=== PATIENT | male | born 1955 | race Caucasian/White ===

== ENCOUNTER 2018-09-09 14:08 | Outpatient (CLI) | payer OTHER, SELFPAY ==
[2018-09-09 15:22] LABS: Anion Gap 8.4 mmol/L (3-11); BUN 31 mg/dL (7-18); CO2 29.6 mmol/L (21.0-32.0); CREATININE 1.21 mg/dL (0.70-1.30); Chloride 101 mmol/L (98-107); Cholesterol 211 mg/dL (50-200); Glucose 115 mg/dL (70-100); HDL Cholesterol 72 mg/dL (40-60); LDL CHOLESTEROL 111 mg/dL (<100); Potassium 3.8 mmol/L (3.5-5.1); Sodium 139 mmol/L (136-145); Triglyceride 160 mg/dL (30-150)
[2018-09-10 16:33] LABS: PSA, Screening 0.3 ng/ml (0-4.5)
== END 2018-09-09 14:28 ==
PROVIDERS: PCP Emergency Medicine; Visit Provider Emergency Medicine
DX: Z00.00 Encounter for general adult medical examination without abnormal findings
CPT/HCPCS: 36415; 80048; 80061; 83721; 84153

== ENCOUNTER 2019-09-27 02:13 | Outpatient (CLI) | payer MEDICARE, BC, SELFPAY ==
[2019-09-27 11:57] LABS: Anion Gap 10.3 mmol/L (3-11); BUN 23 mg/dL (7-18); CO2 27.7 mmol/L (21.0-32.0); CREATININE 1.21 mg/dL (0.70-1.30); Calcium 8.9 mg/dL (8.5-10.1); Chloride 108 mmol/L (98-107); Glucose 98 mg/dL (74-106); Magnesium 1.9 mg/dL (1.8-2.4); Potassium 4.6 mmol/L (3.5-5.1); Sodium 146 mmol/L (136-145)
== END 2019-09-27 02:33 ==
PROVIDERS: PCP Emergency Medicine; Visit Provider Emergency Medicine
DX: I10 Essential (primary) hypertension (principal); I49.9 Cardiac arrhythmia, unspecified
CPT/HCPCS: 36415; 80048; 83735; 93225

== ENCOUNTER 2019-09-27 02:24 | Outpatient (CLI) | payer MEDICARE, BC, SELFPAY | END 2019-09-27 02:44 | PROVIDERS: PCP Emergency Medicine; Visit Provider Emergency Medicine | DX: I49.9 Cardiac arrhythmia, unspecified (principal) | CPT/HCPCS: 93225 ==

== ENCOUNTER 2019-09-30 10:36 | Outpatient (CLI) | payer MEDICARE, BC, SELFPAY ==
--- NOTE | 2019-09-30 11:41 | W.HOLTRPT ---
Date of service: 09/30/19 Time of Service: 11:41 Holter Monitor Report Holter Monitor Note: There is a 24-hour Holter monitor ordered for the indication of irregular heartbeat. ?The patient was in normal sinus rhythm for the majority of the recording with a mean heart rate of 83 bpm. ?There was one episode of supraventricular tachycardia which lasted 5 beats. There were rare PACs. ?There were 0 episodes of ventricular tachycardia but frequent (8.8%) PVCs. ?There were no episodes of atrial fibrillation, no pauses greater than 3 seconds and no evidence of high degree heart block.
== END 2019-09-30 10:56 ==
PROVIDERS: PCP Emergency Medicine; Visit Provider Emergency Medicine
DX: I49.8 Other specified cardiac arrhythmias (principal); I47.1 Supraventricular tachycardia; I49.3 Ventricular premature depolarization
CPT/HCPCS: 93227; 93226

== ENCOUNTER 2019-11-09 02:06 | Outpatient (CLI) | payer MEDICARE, BC, SELFPAY ==
[2019-11-09 13:35] LABS: Abs Immature Grans 0.02 10^3/uL (0.0-0.06); Absolute Basophil Count 0.04 10^3/uL (0.0-0.2); Absolute Eosinophil Count 0.08 10^3/uL (0.0-0.7); Absolute Lymphocyte Count 1.33 10^3/uL (1.2-3.4); Absolute Monocyte Count 0.57 10^3/uL (0.1-0.8); Absolute Neutrophil Count 4.42 10^3/uL (1.2-6.7); Basophils % 0.6; Eosinophils % 1.2; HCT 42.8 % (40.0-50.0); HGB 14.9 g/dL (13.5-17.5); Immature Grans % 0.3; Lymphocytes % 20.6; MCH 31.6 pg (27.0-33.0); MCHC 34.8 % (32.0-36.0); MCV 90.9 fL (80-95); MPV 10.7 fL (8.0-11.0); Monocytes % 8.8; Neutrophils % 68.5 %; Platelet Count 205 10^3/uL (130-400); RBC 4.71 10^6/uL (4.36-5.78); RDW 12.3 % (11.8-14.1); RDW-SD 41.2 fL; WBC 6.46 10^3/uL (4.4-10.8)
[2019-11-09 14:36] LABS: ALT 30 U/L (16-63); AST 36 U/L (15-37); Alkaline Phosphatase 76 U/L (46-116); Anion Gap 8.9 mmol/L (3-11); BUN 21 mg/dL (7-18); Bilirubin, Total 0.6 mg/dL (0.2-1.0); C-Reactive Protein 0.09 mg/dL (0.0-0.3); CO2 30.1 mmol/L (21.0-32.0); CREATININE 1.25 mg/dL (0.70-1.30); Calcium 9.1 mg/dL (8.5-10.1); Chloride 101 mmol/L (98-107); Estimated GFR 57.97 (mL/min/1.73m2); Glucose 107 mg/dL (74-106); Potassium 3.8 mmol/L (3.5-5.1); Sodium 140 mmol/L (136-145); Total Protein 6.7 g/dL (6.4-8.2)
[2019-11-10 11:08] LABS: Lyme Ab w Rflx to Lyme Confirm Negative (Negative)
== END 2019-11-09 02:26 ==
PROVIDERS: PCP Emergency Medicine; Visit Provider Emergency Medicine
DX: I42.9 Cardiomyopathy, unspecified (principal); M25.50 Pain in unspecified joint; I49.3 Ventricular premature depolarization; I10 Essential (primary) hypertension
CPT/HCPCS: 36415; 80053; 99203; 85025; 86140; 86618

== ENCOUNTER 2020-01-19 07:16 | Outpatient (CLI) | payer MEDICARE, BC, SELFPAY ==
[2020-01-21 00:07] LABS: COVID-19 RT-PCR Result NEGATIVE (Negative)
== END 2020-01-19 07:36 ==
PROVIDERS: PCP Emergency Medicine; Visit Provider Nurse Practitioner Family
DX: Z11.59 Encounter for screening for other viral diseases (principal)
CPT/HCPCS: U0003

== ENCOUNTER 2020-08-18 18:40 | Outpatient (REF) | payer MEDICARE, OTHER, SELFPAY ==
[2020-08-18 14:19] LABS: Anion Gap 8.4 mmol/L (3-11); BUN 19 mg/dL (7-18); CO2 28.6 mmol/L (21.0-32.0); CREATININE 1.2 mg/dL (0.70-1.30); Calcium 8.5 mg/dL (8.5-10.1); Chloride 106 mmol/L (98-107); Glucose 69 mg/dL (74-106); Potassium 4.3 mmol/L (3.5-5.1); Sodium 143 mmol/L (136-145)
== END 2020-08-18 18:41 | disposition home or self-care (01) ==
LOC: NCHCN 18:40
PROVIDERS: PCP Emergency Medicine; Visit Provider Emergency Medicine
DX: I10 Essential (primary) hypertension (principal)
CPT/HCPCS: 80048

== ENCOUNTER → 2021-08-23 11:27 | Outpatient (BNVA) | payer MEDICARE, OTHER, SELFPAY | PROVIDERS: PCP Family Medicine; Referring Provider Emergency Medicine; Visit Provider Surgery | DX: Z12.11 Encounter for screening for malignant neoplasm of colon (principal); N25.9 Disorder resulting from impaired renal tubular function, unspecified; Z90.5 Acquired absence of kidney; I10 Essential (primary) hypertension; I49.3 Ventricular premature depolarization | CPT/HCPCS: 99203; 99213; 99242 ==

== ENCOUNTER 2021-08-31 09:16 | Day surgery (SDC) | payer MEDICARE, OTHER, SELFPAY ==
--- NOTE | 2021-08-30 16:57 | W.COLOREPORT ---
Colonoscopy Report Date of procedure: 08/31/21 Pre-op diagnosis general: CRC screening Post-op diagnosis procedure note: other (large polyp/minor diverticula) Procedure: Hot polypectomy, tattoo, clip placement Surgeon: Namrata Grant Anesthesia Type: General:No Airway Estimated blood loss (mL): 2 Pathology: other Complications: None Disposition: same day Prep: Miralax/Dulcolax Retraction Time: 22 Procedure Description: After informed consent was obtained the patient was taken to the procedure room and placed in a left decubitous position. Monitors were applied and a time out was done. The patients name, date of , procedure, allergies to medications and metal in their body was reviewed. The patient was then sedated. Once sedated and comfortable a rectal exam was done. External exam was normal. Internal exam revealed a normal sphincter tone and no palpable masses-internal hemorrhoidal tags. The scope was then introduced and retrofelexed. Grade 1 x1 column internal hemorrhoids were identified. The scope was then advanced to the cecum difficulty. The TI and appendiceal orifice were identified. The prep was be BPS 2 in all quadrants for total of 6. The scope was then slowly retracted over 20 minutes. back into the rectum. He has a 1.75 cm polyp at 20 cm. It is on a very short stalk. It was removed in entirety with a hot forcep. The specimen is retrieved. There is no bleeding noted. Several bites are taken of the small with a cold forceps and placed in a separate container. The lesion is tattooed with Gladys ink. 2 clips are placed. No bleeding is noted. He does have a few small scattered diverticula in the sigmoid colon. There is no signs of active bleeding or infection. The mucosa is otherwise pink and healthy with a normal vascular pattern. TTe scope was removed and the patient was woken up and taken back to Same day surgery in stable condition. The patient tolerated the procedure well and there were no immediate complications. Follow up: The patient should follow up in 1-3 years, path pending, unless they develop changes in bowel habits or other new gastrointestinal complaints.
--- NOTE | 2021-08-30 16:58 | PDOC.DSDIS_ITS ---
Discharge Plan Disposition Patient Disposition: HOME Condition: Stable Discharge Details Reason For Visit: colon scope Attending Provider: Namrata Grant Primary Care Provider: Preet Hsu Home Meds and New Rx's Prescriptions: No Action amlodipine 5 mg tablet 2.5 mg PO QAM hydrochlorothiazide 25 mg tablet 25 mg PO DAILY Qty: 90 4RF losartan 100 mg tablet 100 mg PO DAILY Qty: 90 3RF Discharge Instructions Instructions: Colorectal Polyps (GEN), Diverticulosis (GEN), Diverticulitis Diet (GEN) Additional Instructions: DSU Colonoscopy Post- Op Instructions Instructions for Everyone who is given Anesthesia: For your safety, please do the following for the next twenty-four (24) hours: *Do Not operate a motor vehicle (car, truck, motorcycle, etc.) *Do Not drink alcoholic beverages or use any recreational drugs for the first 24 hours or while taking pain medications. The medications in your body may have a reaction that can be dangerous. *Do Not make any important decisions or sign any important papers. Findings: large polyp in colon. No ASA/NSAID's for 2 wks Follow up: My office will send a letter in 2 to 3 weeks time detailing as to what type of polyp it was and when they want you to repeat your colonoscopy. 1. No lifting over 20 pounds or strenuous activity for the first 48 hours after your procedure. After 48 hours there are no restrictions on your activity but you may feel fatigued for a few days. 2. After you arrive home you may have a light meal and return to your normal diet as you can tolerate it without feeling sick to your stomach. 3. You may have a bloated, gaseous feeling in your belly (abdomen) after a colonoscopy. Passing gas and belching will help. Walking or lying down on your left side with your knees flexed may relieve the discomfort. Call the office at [phone] (Office) or [phone] (Hospital) right away if you notice any of the following: a.Vomiting of blood or ?coffee ground stools?. b.Rectal bleeding 1Tbsp, blood clots or continuous bleeding. c.Severe belly (abdominal) pain. d.A hard distended belly (abdomen) and an inability to pass gas. 4. Please don?t expect to have a normal BM (bowel movement) for 2-3 days after your procedure. 5. If there are questions regarding the findings of your procedure, please contact your doctor 6. If you are unable to contact your doctor with a problem, contact the hospital at [phone]. 7. Continue all your regular medications unless directed otherwise. I understand the above instructions and have no questions. Signature of Patient or Adult Escort Name of Responsible Adult Escort Signature of Nurse Date/Time Activity:: see above Diet:: see above Discharge Orders Discharge Orders: Discharge Order (Routine); Ordered 08/30/21 Ordered By: Namrata Grant
[2021-08-31 09:31] VITALS: BP 151/98; PULSE 78; RESP 17; TEMP 36.6; O2SAT 97
[2021-08-31] MEDS: Lactated Ringers 1,000 ML 80 ML IV (09:42)
--- NOTE | 2021-08-31 09:46 | ANES.PREOP_ITS ---
General Info Date of Service Date Performed: 08/31/21 Height: 5 ft 9 in Weight: 74.1 kg Body Mass Index (BMI): 24.1 Surgical Procedure: Operation Date: 08/31/21 10:05 Proposed Procedure Side Surgeon p Colonoscopy Namrata Grant DO Actual Procedure Side Surgeon p Colonoscopy Not Applicable Namrata Grant DO Pre-Op Diagnosis Post-Op Diagnosis COLON CANCER SCREENING Meds Allergies and Home Medications Allergies Allergy/AdvReac Type Severity Reaction Status Date / Time lisinopril AdvReac Mild COUGH Verified 08/31/21 09:36 Home Medication Medication Instructions Recorded hydrochlorothiazide 25 mg tablet 25 mg PO DAILY #90 tabs 08/18/20 losartan 100 mg tablet 100 mg PO DAILY #90 tab-caps 08/18/20 amlodipine 5 mg tablet 2.5 mg PO QAM 08/23/21 Current Visit Medications: Current Medications Generic Name Dose Route Start Last Admin Trade Name Freq PRN Reason Stop Dose Admin Hyoscyamine Sulfate 0.125 mg 08/30/21 12:44 Hyoscyamine 0.125 Mg Sl/Oral/Chew SL DIRECTED PRN Ringer's Solution 1,000 mls @ 80 mls/hr 08/31/21 06:00 08/31/21 09:42 IV 09/29/21 23:59 80 mls/hr INFUSION LEE Administration IV Miscellaneous Supplies 1 each 08/31/21 06:00 Iv Access IV 09/29/21 23:59 DIRECTED LEE Ondansetron HCl 4 mg 08/30/21 12:44 Ondansetron 4 Mg/2 Ml Vial IVP Q4H PRN PRN Nausea / Vomiting Sodium Chloride 0 ml 08/31/21 06:00 Normal Saline Flush 10 Ml Syr IV 09/29/21 23:59 PRN PRN Sodium Chloride 0 ml 08/31/21 06:00 Normal Saline 10 Ml Vial IJ 09/29/21 23:59 DIRECTED PRN Sterile Water 0 ml 08/31/21 06:00 Water,Injection,Sterile 10 Ml Vial IJ 09/29/21 23:59 DIRECTED PRN PFSH Active Problems Active Problems: Problem Status Onset Code 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 Premature ventricular contractions I49.3 Essential hypertension 03/30/13 I10 Medical History Medical History Encounter for screening for other viral diseases Pityriasis versicolor Surgical History Surgical History Hernia repair (~2011) Kidney donor left Status post hernia repair Tobacco Smoking/Tobacco Use Status: Never Alcohol Alcohol Intake: current Alcohol intake frequency: 0-2 drinks per day Alcohol ty pe: beer Substance Use Substance use type: does not use Vital Signs and Lab Results Vital Signs Most Recent Vital Signs in EMR: Most Recent Vital Signs Temp Pulse Resp BP Pulse Ox 36.6 C 78 17 151/98 H 97 08/31/21 09:31 08/31/21 09:31 08/31/21 09:31 08/31/21 09:31 08/31/21 09:31 Lab Results Blood Type / Crossmatch: No Data to Display Complete Blood Count: No Data to Display Complete Metabolic Panel: No Data to Display Liver Function Panel: No Data to Display Coagulation Panel: No Data to Display Cardiac Panel: No Data to Display Arterial Blood Gas: No Data to Display Venous Blood Gas: No Data to Display Pancreas Panel: No Data to Display Thyroid Panel: No Data to Display Infectious Disease: No Data to Display Blood Cultures: No Data to Display Toxicology Panel: No Data to Display Anesthesia Assessment and Plan Anesthesia History Personal History: No History of Anesthesia Complications Family History: No Family History of Anesthesia Complications Exercise Tolerance Exercise Tolerance: Metabolic Equivalents>4 Pertinent Negatives Pertinent Negatives: No Symptoms of GERD, No Major Cardiovascular Symptoms or Complaints (HTN well controlled with Lisinopril), No Major Pulmonary Symptoms or Complaints and No History of CVA/TIA Cardiac & Pulmonary Exam Cardiac Exam: Normal S1/S2 Heart Sounds and Other Pulmonary Exam: Clear Bilateral Breath Sounds Implantable Cardiac Device Does patient have a Pacemaker or an ICD?: No Airway Exam Known Difficult Airway: No Mallampati Class: 1 Mouth Opening: Normal (> 3cm) Thyromental Distance: Greater than 3 cm Neck Range of Motion: Full ROM Neck Circumference: Normal Teeth Condition: Normal Dentition ASA Classification ASA Score: ASA 2 Emergency Case?: No NPO Status NPO Status: NPO Clears >2 hours, Solids >8 hours Anesthesia Plan Resuscitation Status: Full Code Anesthesia Technique: General Anesthesia Airway Planned: Natural Airway Monitors Used: Standard Monitors
[2021-08-31 09:50] VITALS: BMI 24.1
--- NOTE | 2021-08-31 09:51 | ANES.PREOP_ITS ---
General Info Date of Service Date Performed: 08/31/21 Height: 5 ft 9 in Weight: 74.1 kg Body Mass Index (BMI): 24.1 Surgical Procedure: Operation Date: 08/31/21 10:05 Proposed Procedure Side Surgeon p Colonoscopy Namrata Grant DO Actual Procedure Side Surgeon p Colonoscopy Not Applicable Namrata Grant DO Pre-Op Diagnosis Post-Op Diagnosis COLON CANCER SCREENING Meds Allergies and Home Medications Allergies Allergy/AdvReac Type Severity Reaction Status Date / Time lisinopril AdvReac Mild COUGH Verified 08/31/21 09:36 Home Medication Medication Instructions Recorded hydrochlorothiazide 25 mg tablet 25 mg PO DAILY #90 tabs 08/18/20 amlodipine 5 mg tablet 2.5 mg PO QAM 08/23/21 losartan 100 mg tablet 100 mg PO DAILY #90 tab-caps 08/31/21 Current Visit Medications: Current Medications Generic Name Dose Route Start Last Admin Trade Name Freq PRN Reason Stop Dose Admin Hyoscyamine Sulfate 0.125 mg 08/30/21 12:44 Hyoscyamine 0.125 Mg Sl/Oral/Chew SL DIRECTED PRN Ringer's Solution 1,000 mls @ 80 mls/hr 08/31/21 06:00 08/31/21 09:42 IV 09/29/21 23:59 80 mls/hr INFUSION LEE Administration IV Miscellaneous Supplies 1 each 08/31/21 06:00 Iv Access IV 09/29/21 23:59 DIRECTED LEE Ondansetron HCl 4 mg 08/30/21 12:44 Ondansetron 4 Mg/2 Ml Vial IVP Q4H PRN PRN Nausea / Vomiting Sodium Chloride 0 ml 08/31/21 06:00 Normal Saline Flush 10 Ml Syr IV 09/29/21 23:59 PRN PRN Sodium Chloride 0 ml 08/31/21 06:00 Normal Saline 10 Ml Vial IJ 09/29/21 23:59 DIRECTED PRN Sterile Water 0 ml 08/31/21 06:00 Water,Injection,Sterile 10 Ml Vial IJ 09/29/21 23:59 DIRECTED PRN PFSH Active Problems Active Problems: Problem Status Onset Code 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 Premature ventricular contractions I49.3 Essential hypertension 03/30/13 I10 Medical History Medical History Encounter for screening for other viral diseases Pityriasis versicolor Surgical History Surgical History Hernia repair (~2011) Kidney donor left Status post hernia repair Tobacco Smoking/Tobacco Use Status: Never Alcohol Alcohol Intake: current Alcohol intake frequency: 0-2 drinks per day Alcohol ty pe: beer Substance Use Substance use type: does not use Vital Signs and Lab Results Vital Signs Most Recent Vital Signs in EMR: Most Recent Vital Signs Temp Pulse Resp BP Pulse Ox 36.6 C 78 17 151/98 H 97 08/31/21 09:31 08/31/21 09:31 08/31/21 09:31 08/31/21 09:31 08/31/21 09:31 Lab Results Blood Type / Crossmatch: No Data to Display Complete Blood Count: No Data to Display Complete Metabolic Panel: No Data to Display Liver Function Panel: No Data to Display Coagulation Panel: No Data to Display Cardiac Panel: No Data to Display Arterial Blood Gas: No Data to Display Venous Blood Gas: No Data to Display Pancreas Panel: No Data to Display Thyroid Panel: No Data to Display Infectious Disease: No Data to Display Blood Cultures: No Data to Display Toxicology Panel: No Data to Display Anesthesia Assessment and Plan Anesthesia History Personal History: No History of Anesthesia Complications Family History: No Family History of Anesthesia Complications Exercise Tolerance Exercise Tolerance: Metabolic Equivalents>4 Pertinent Negatives Pertinent Negatives: No Symptoms of GERD, No Major Cardiovascular Symptoms or Complaints, No Major Pulmonary Symptoms or Complaints and No History of CVA/TIA Cardiac & Pulmonary Exam Cardiac Exam: Normal S1/S2 Heart Sounds Pulmonary Exam: Clear Bilateral Breath Sounds Implantable Cardiac Device Does patient have a Pacemaker or an ICD?: No Airway Exam Known Difficult Airway: No Mallampati Class: 1 Mouth Opening: Normal (> 3cm) Thyromental Distance: Greater than 3 cm Neck Range of Motion: Full ROM Neck Circumference: Normal Teeth Condition: Normal Dentition ASA Classification ASA Score: ASA 2 Emergency Case?: No NPO Status NPO Status: NPO Clears >2 hours, Solids >8 hours Anesthesia Plan Resuscitation Status: Full Code Anesthesia Technique: General Anesthesia Airway Planned: Natural Airway Pain Management: Surgeon and patient request nerve block Monitors Used: Standard Monitors
--- NOTE | 2021-08-31 10:23 | BOWEL_PTH ---
PATIENT: Nhan Alex LOC: [facility] U#:[id number] AGE/SX: 66/M ROOM: RE08/31/[address]: Namraat Grant : 1955 BED: DIS: 08/31/2021 SPEC #: [id number] RECD: 08/31/21 12:25 STATUS: DANNI REHever #: [id number] JANESSA: 08/31/21 10:[address]: Namrata Grant DEPT: Surgical Specimen RECD BY: Sapphire Chang ENTERED: 08/31/21 12:26 SP TYPE: Bowel OTHR DR: Preet Hsu, SHOE CLERK Tissues: 1 - BIOPSY BOWEL 2 - BIOPSY BOWEL Procedures: GROSS AND MICRO LEVEL 4 Comments: [id number]
[2021-08-31] MEDS: Endoscopic Tattoo 5 ML SYR IJ (10:30)
[2021-08-31 10:49] VITALS: BP 101/76; PULSE 72; RESP 17; TEMP 36.3; O2SAT 98
--- NOTE | 2021-08-31 10:52 | W.ANESPOSTOP ---
Postoperative Evaluation Date, Time and Location Date Performed: 08/31/21 Time Performed: 09:52 Patient Location: Day Surgery Unit Vital Signs Most Recent Imported Vital Signs: Most Recent Vital Signs Temp Pulse Resp BP Pulse Ox 36.3 C L 72 17 101/76 98 08/31/21 10:49 08/31/21 10:49 08/31/21 10:49 08/31/21 10:49 08/31/21 10:49 Pain Score Most Recent Pain Score: Most Recent Pain Score Pain Level 0 08/31/21 09:31 Assessment Mental Status: Awake (Alert & Oriented to Patient Baseline) Airway and Respiratory Function: Patent airway with normal (patient baseline) respiratory exam Cardiovascular Function: Hemodynamically Stable Hydration Status: Adequately Hydrated Nausea & Vomiting: No Nausea or Vomiting Pain: Pt. Denies Any Pain Peripheral Nerve Block: Patient did not receive a nerve block
[2021-08-31 11:07] VITALS: BP 121/109; PULSE 65; RESP 17; TEMP 36.6; O2SAT 99
[2021-08-31 12:45] VITALS: BMI 24.1
== END 2021-08-31 11:55 | disposition home or self-care (01) ==
PROVIDERS: PCP Nurse Practitioner Family; Visit Provider Surgery
PROC: 0DJD8ZZ Inspection of Lower Intestinal Tract, Via Natural or Artificial Opening Endoscopic (ICD-10-PCS; CPT 45378; principal; 2021-08-31 10:00)
DX: Z12.11 Encounter for screening for malignant neoplasm of colon (principal); K63.5 Polyp of colon; K64.0 First degree hemorrhoids
CPT/HCPCS: 45384; 45381; 88305

== ENCOUNTER 2021-09-03 04:02 | Outpatient (CLI) | payer MEDICARE, OTHER, SELFPAY ==
[2021-09-03 13:26] LABS: ALT 23 U/L (16-63); AST 22 U/L (15-37); Albumin 3.9 g/dL (3.4-5.0); Alkaline Phosphatase 72 U/L (46-116); Anion Gap 9.4 mmol/L (3-11); BUN 17 mg/dL (7-18); CO2 27.6 mmol/L (21.0-32.0); CREATININE 1.1 mg/dL (0.70-1.30); Calcium 8.8 mg/dL (8.5-10.1); Chloride 104 mmol/L (98-107); Glucose 99 mg/dL (74-106); Sodium 141 mmol/L (136-145); Total Protein 6.8 g/dL (6.4-8.2)
[2021-09-03 16:09] LABS: Calculated LDL 128 mg/dL (<100); Cholesterol 225 mg/dL (<200); HDL Cholesterol 83 mg/dL (40-60); Triglyceride 73 mg/dL (<150)
[2021-09-03 22:47] LABS: PSA, Screening 0.5 ng/mL (<=4.5)
== END 2021-09-03 04:03 | disposition home or self-care (01) ==
LOC: LOS 04:02
PROVIDERS: Family Medicine; PCP Nurse Practitioner Family; Visit Provider Nurse Practitioner Family
DX: I10 Essential (primary) hypertension (principal); Z13.6 Encounter for screening for cardiovascular disorders; Z12.5 Encounter for screening for malignant neoplasm of prostate
CPT/HCPCS: 36415; 80053; 80061; 84153

== ENCOUNTER 2022-08-22 02:29 | Outpatient (CLI) | payer MEDICARE, SELFPAY ==
[2022-08-22 12:44] LABS: ALT 28 U/L (16-63); Anion Gap 8.6 mmol/L (3-11); BUN 24 mg/dL (7-18); CO2 30.4 mmol/L (21.0-32.0); CREATININE 1.4 mg/dL (0.70-1.30); Calculated LDL 116 mg/dL (<100); Chloride 103 mmol/L (98-107); Cholesterol 206 mg/dL (<200); Estimated GFR 54.75 (mL/min/1.73m2); Glucose 103 mg/dL (74-106); HDL Cholesterol 80 mg/dL (40-60); Potassium 3.6 mmol/L (3.5-5.1); Sodium 142 mmol/L (136-145); Triglyceride 53 mg/dL (<150)
== END 2022-08-22 02:30 | disposition home or self-care (01) ==
LOC: LOS 02:30
PROVIDERS: PCP Nurse Practitioner Family; Visit Provider Family Medicine
DX: E78.5 Hyperlipidemia, unspecified (principal); I10 Essential (primary) hypertension
CPT/HCPCS: 36415; 80048; 80061; 84460

== ENCOUNTER 2023-09-26 09:25 | Outpatient (CLI) | payer MEDICARE, SELFPAY ==
[2023-09-26 10:00] LABS: ALT 25 U/L (16-63); AST 19 U/L (15-37); Alkaline Phosphatase 67 U/L (46-116); Anion Gap 9.1 mmol/L (3-11); BUN 23 mg/dL (7-18); Bilirubin, Total 1.2 mg/dL (0.2-1.0); CO2 29.9 mmol/L (21.0-32.0); CREATININE 1.3 mg/dL (0.70-1.30); Calcium 9.3 mg/dL (8.5-10.1); Calculated LDL 133 mg/dL (<100); Chloride 102 mmol/L (98-107); Cholesterol 226 mg/dL (<200); Estimated GFR 59.47 (mL/min/1.73m2); Glucose 104 mg/dL (74-106); HDL Cholesterol 79 mg/dL (40-60); Potassium 3.7 mmol/L (3.5-5.1); Sodium 141 mmol/L (136-145); Triglyceride 70 mg/dL (<150)
[2023-09-26 20:36] LABS: PSA, Screening 0.8 ng/mL (<=4.5)
== END 2023-09-26 09:26 | disposition home or self-care (01) ==
LOC: LBO 09:25
PROVIDERS: PCP Family Medicine; Visit Provider Family Medicine
DX: Z00.00 Encounter for general adult medical examination without abnormal findings (principal); I10 Essential (primary) hypertension; Z13.6 Encounter for screening for cardiovascular disorders; Z12.5 Encounter for screening for malignant neoplasm of prostate
CPT/HCPCS: 36415; 80053; 80061; 83698; 84153

== ENCOUNTER 2024-03-19 08:33 | Outpatient (CLI) | payer MEDICARE, SELFPAY ==
[2024-03-19 13:08] LABS: Bilirubin Negative (Negative); Blood Negative (Negative); Clarity Clear (Clear); Glucose Negative (Negative); Ketones Negative (Negative); Leukocyte Esterase Negative (Negative); Nitrite Negative (Negative); Urobilinogen 0.2 mg/dL (Up to 0.2)
[2024-03-24 08:40] LABS: Renin Activity, Plasma <0.6 ng/mL/h
== END 2024-03-19 08:34 | disposition home or self-care (01) ==
LOC: LOS 08:33
PROVIDERS: PCP Family Medicine; Referring Provider Family Medicine; Visit Provider Family Medicine
DX: I10 Essential (primary) hypertension (principal); R30.0 Dysuria; E78.5 Hyperlipidemia, unspecified
CPT/HCPCS: 36415; 82088; 81003; 84244

== ENCOUNTER 2024-12-10 17:51 | Outpatient (CLI) | payer MEDICARE, SELFPAY ==
[2024-12-10 10:44] LABS: ALT 25 U/L (16-63); AST 20 U/L (15-37); Albumin 3.9 g/dL (3.4-5.0); Alkaline Phosphatase 78 U/L (46-116); Anion Gap 7.3 mmol/L (3-11); BUN 22 mg/dL (7-18); Bilirubin, Total 1.6 mg/dL (0.2-1.0); CO2 31.7 mmol/L (21.0-32.0); Calcium 9.2 mg/dL (8.5-10.1); Calculated LDL 76 mg/dL (<100); Chloride 102 mmol/L (98-107); Cholesterol 172 mg/dL (<200); Estimated GFR 59.10 (mL/min/1.73m2); Glucose 104 mg/dL (74-106); HDL Cholesterol 80 mg/dL (>or=40); Potassium 3.7 mmol/L (3.5-5.1); Sodium 141 mmol/L (136-145); Total Protein 7.2 g/dL (6.4-8.2); Triglyceride 80 mg/dL (<150)
== END 2024-12-10 17:52 | disposition home or self-care (01) ==
LOC: LBO 17:58
PROVIDERS: PCP Family Medicine; Visit Provider Family Medicine
DX: Z13.6 Encounter for screening for cardiovascular disorders (principal); E78.5 Hyperlipidemia, unspecified; I10 Essential (primary) hypertension
CPT/HCPCS: 36415; 80053; 80061

== ENCOUNTER → 2025-04-06 00:11 | Outpatient (CLI) | payer MEDICARE, SELFPAY ==
--- NOTE | 2025-04-06 07:30 | DI.US_ITS ---
APPROVED REPORT EXAM: Comprehensive 2D, Doppler, and color-flow Echocardiogram Patient Location: Out-Patient Domain Architect: Liudmila Soria RDCS (AE) Indications: F/U CTA Chest, Thoracic aortic ectasia Other Information Study Quality: Adequate Conclusion Normal left ventricular wall thickness and chamber size. Ejection fraction is 65%. Wall motion is normal Normal right ventricular size and function Both atria are normal in size There are no structural valvular abnormalities Mild mitral and aortic regurgitation. Normal estimated right ventricular systolic pressure 28 mmHg Very dilated aortic root and ascending aorta, both measuring more than 5 cm in diameter Wall motion Left Ventricle The left ventricle is normal size. The left ventricular systolic function is normal. The left ventricular ejection fraction is within the normal range. There is normal left ventricular wall thickness. There is normal LV segmental wall motion. There is no ventricular septal defect visualized. LVEF is 65%. Right Ventricle The right ventricle is normal size. The right ventricular systolic function is normal. Atria The left atrium size is normal. The right atrium size is normal. The interatrial septum is intact with no evidence for an atrial septal defect. Aortic Valve The aortic valve is normal in structure. Aortic valve is trileaflet. There is no aortic valvular stenosis. Mild aortic regurgitation. Mitral Valve The mitral valve is normal in structure. No evidence of mitral valve stenosis. Mild mitral regurgitation. Tricuspid Valve The tricuspid valve is normal in structure. There is no tricuspid valve stenosis. Trace to mild tricuspid regurgitation. The RVSP is 28.0_ mmHg. Pulmonic Valve The pulmonary valve is normal in structure. There is no pulmonic valvular stenosis. Trace pulmonic regurgitation. Great Vessels Aortic root is severely dilated. The ascending aorta is severely dilated. Aortic arch is normal in caliber. IVC is normal in size and collapses >50% with inspiration. Pericardium There is no pericardial effusion. 2D Dimensions IVSD d PLAX 1.04 cm M: 0.6-1.2 Ao Root d 5.27 cm M: 3.1 - 3.7 LVPW d PLAX 1.00 cm M: 0.6 - 1.2 Ao Asc Diam d 5.12 cm M: 2.6 - 3.4 LVID d PLAX 5.10 cm M: 4.2 - 5.8 LVDs 3.44 cm M: 2.5 - 4.0 LV EF Teichholz 60.3 % FS 32.36 % LV EDV (Teich) 122.9 mL LV ESV (Teich) 48.7 mL M-Mode TAPSE 2.53 cm (M/F) >1.7 Auto EF LV EDV A4C 184.1 mL LV EDV A2C 209.4 mL LV EDV BP 198.8 mL LV ESV A4C 64.3 mL LV ESV A2C 72.7 mL LV ESV BP 67.2 mL LVEF(%) A4C 65.1 % LVEF(%) A2C 65.3 % LVEF(%) BP 66.2 % LV SV A4C 119.7 ml LV SV A2C 136.7 ml LV SV BP 131.6 ml LV CO A4C 8.1 L/min LV CO A2C 9.4 L/min LV CO BP 8.8 L/min HR A4C 67.68 BPM HR A2C 68.97 BPM LV EDV Index (BP) LA Volume LA Length A4C 4.8 cm LA Length A2C 5.4 cm LA Area A4C s 17.04 cm2 LA Area A2C s 21.42 cm2 LA Vol A4C A-L 50.93 mL LA Vol A2C A-L 72.09 mL LA Vol Biplane A-L 64.0 mL LA Vol/BSA A4C A-L LA Vol/BSA A2C A-L LA Vol/BSA BP A-L 32.8 mL/m2 LA Vol A4C MOD 46.7 mL LA Vol A2C MOD 57.8 mL LA Vol BP MOD 54.1 mL LV Diastology MV E' medial 0.074 (>0.07 m/s) MV E Vmax 0.59 (0.4-1.3 m/s) MV E/E' MED 7.98 (<14) MV A Vmax 1.05 (0.4-1.3 m/s) MV E' lateral 0.050 (>0.1 m/s) E/A Ratio 0.6 MV E/E' LAT 11.85 (<14) MV E' Average 0.062 m/s MV E/E'(average) 9.54 Aortic Valve AoV Vmax 1.50 m/s LVOT Vmax 1.09 m/s AoV Peak Grad 50.9 mmHg LVOT Peak Grad 4.8 mmHg AoV Area (Vmax) 2.47 cm2 LVOT VTI 0.268 m AoV VTI 0.327 m LVOT Mean Grad 2.6 mmHg AoV Mean Markell. 1.02 m/s LVOT SV 90.49 mL AoV Mean Grad 4.8 mmHg LVOT Diam s 2.05 cm AoV Area (VTI) 2.76 cm2 AV Regurg Peak Gr. 8.97 mmHg Velocity Ratio 0.73 AR Decel [place] 2.9m/sec2 AR DT 1650 msec AR PHT 478 msec AR Vmax 4.81 m/s Mitral Valve MV DT 354 (160-240 msec) MV Vmax TIPS 1.19 m/s MV Mean Grad 2.3 (<2mmHg) MV VTI 0.315 m Pulmonary Valve PV Vmax 0.88 (0.5-1.5 m/s) RVOT Vmax 0.51 m/s PV Peak Grad 3.1 mmHg RVOT Peak Gr. 1.0 mmHg PV Mean Markell 0.61 m/s RVOT VTI 0.140 m PV Mean Grad 1.7 mmHg RVOT Mean Gr. 0.6 mmHg Tricuspid Valve RA Pressure 3.00 mmHg TR Vmax 2.34 m/s TV S' 0.18 m/s TR Peak Grad 21.9 mmHg RVSP (TR) 25.0 mmHg
== END ==
LOC: DI 00:11
PROVIDERS: PCP Family Medicine; Visit Provider Family Medicine
DX: I77.810 Thoracic aortic ectasia (principal)
CPT/HCPCS: 93306